=== PATIENT | male | born 1965 | race Caucasian/White ===

== ENCOUNTER 2021-06-12 05:23 | Emergency (ER) | payer OTHER, SELFPAY ==
--- NOTE | ~2021-06-12 | XR_ITS ---
XR abdomen/kub 1V DATE: 06/12/2021 06:31 INDICATION: Right flank pain TECHNIQUE: 2 AP views COMPARISON: 06/12/[address] abdomen pelvis FINDINGS: No obvious radiographic correlate for the 3 mm right ureterovesical junction calculus demon strated on the current CT abdomen pelvis examination. No evidence of bowel structures. The psoas shadows are intact. No visceromegaly is evident. IMPRESSION: Nonspecific abdomen Reviewed, dictated and finalized at [facility]. Reviewed, dictated and finalized at [facility]. NT EXPERIENCE CONSULTANT IMPRESSION: Nonspecific abdomen
--- NOTE | ~2021-06-12 | CT_ITS ---
EXAMINATION: CT abdomen pelvis wo con DATE: 06/12/2021 06:21 INDICATION: Right flank pain for 2 hours TECHNIQUE: Computed tomography (CT) of the abdomen and pelvis was performed without intravenous contr ast. Automated exposure control and iterative reconstruction technique were employed. Exam dose: 443 .20 mGy-cm total exam DLP. COMPARISON: 06/12/2021 KUB FINDINGS: There is primarily dependent right lower lobe infiltrate/atelectasis and suggestion of some posterior pleural thickening. The left lung base is clear. Normal heart size. No pericardial or pleu ral effusion. Normal heart size. Small sliding hiatal hernia. The liver, gallbladder, bile ducts, pancreas, pancreatic duct and spleen are unremarkable. Normal morphology of the adrenal glands. There is a 3 mm right ureterovesical junction calculus with associated mild right hydroureteronephros is. No definite radiographic correlate for the calculus. No other urinary tract calculus. No left hydroureteronephrosis. There is atherosclerotic calcification but normal caliber of the abdominal aorta. No intraperitoneal or retroperitoneal pelvic mass lesion or adenopathy or ascites. There is prostate enlargement and calcification. The urinary bladder appears unremarkable. No bowel obstruction or intraperitoneal free air. The right testicle is situated in the inguinal canal along with an approximately 12 mm rounded calcif ication; recommend clinical correlation for possible undescended testicle with associated risk for te sticular malignancy. Included skeletal structures are unremarkable. IMPRESSION: 3 mm right ureterovesical junction calculus with associated mild hydroureteronephrosis Right lower lobe primarily dependent infiltrate and/atelectasis and suggestion of posterior pleural t hickening Right testicle in inguinal calcification recommend clinical correlation for possible undescended test icle with associated risk for testicular malignancy Prostate enlargement and calcification Reviewed, dictated and finalized at [facility]. Reviewed, dictated and finalized at [facility]. ING OPERATOR IMPRESSION: 3 mm right ureterovesical junction calculus with associated mild h ydroureteronephrosis Right lower lobe primarily dependent infiltrate and/atelectasis and suggestion of posterior pleural thickening Right testicle in inguinal calcification recommend clinical correlation for pos sible undescended testicle with associated risk for testicular malignancy Prostate enlargement and calcification
[2021-06-12 05:20] VITALS: BP 147/78; PULSE 72; RESP 13; TEMP 36.4; O2SAT 100
--- NOTE | 2021-06-12 05:38 | ED.ABDPAIN ---
HPI - Abdominal Pain General Chief Complaint: Abdominal Pain Stated Complaint: rt flank pain Time Seen by Provider: 06/12/21 05:27 Source: patient Mode of arrival: EMS Limitations: no limitations History of Present Illness HPI narrative: This is a 55 year old male who presents for evaluation of right flank pain. He developed sudden onset pain to right lower back pain less than 1 hour ago. He reports braden is severe and it is moving to right lower abdomen. EMS gave patient IV morphine but he continues to have severe pain. He reports increased urinary urgency but denies nausea, vomiting, fever, hematuria. He denies history of kidney stones. His pain is now worsened or relieved by anything. Related Data Allergies Allergy/AdvReac Type Severity Reaction Status Date / Time No Known Allergies Allergy Verified 06/12/21 05:31 Review of Systems Review of Systems: All systems reviewed & are unremarkable except as noted in HPI and below PMFSH Past Medical History Medical History (Updated 06/12/21 @ 06:54 by Lynn Mullins MD) Patient denies medical problems Surgical History Surgical History (Updated 06/12/21 @ 05:41 by Lynn Mullins MD) No pertinent past surgical history Social History Social History (Updated 06/12/21 @ 05:41 by Lynn Mullins MD) Smoking status: Never smoker Exam Const: General: alert Orientation/consciousness: patient oriented x3 Other: moderate distress due to pain, shaking Eyes: EOM: EOMs intact bilaterally Resp: Effort & Inspection: normal respiratory effort and no retractions Auscultation: clear to auscultation bilaterally Cardio: Rate: regular rate Rhythm: regular rhythm Heart sounds: no murmurs GI: GI Palp: Yes Soft to palpation, No Tenderness to palpation present (GI) and No Guarding due to palpation present (GI) Auscultation: normal bowel sounds : General: Yes no CVA tenderness Skin: General skin exam: normal color Rashes: no rashes Neuro: General: patient oriented x3, moves all extremities and CN's II-XI intact bilaterally Psych: Mental Status: mental status grossly normal Affect: normal affect Course Reevaluation(s) Reevaluation #1: I discussed with patient CT findings as distal ureteral stone that is passing as cause of his pain. I also discussed CT suggesting possible undescended testicle and enlarged prostate Date: 06/12/21 Time: 06:52 Vital Signs Vital signs: Vital Signs Temperature 97.6 F 06/12/21 05:20 Pulse Rate 72 06/12/21 05:20 Respiratory Rate 13 06/12/21 05:20 Blood Pressure 147/78 H 06/12/21 05:20 Pulse Oximetry 100 06/12/21 05:20 Temperature 97.6 F 06/12/21 05:20 Pulse Rate 71 06/12/21 06:26 Respiratory Rate 20 06/12/21 06:26 Blood Pressure 146/83 H 06/12/21 06:26 Pulse Oximetry 100 06/12/21 06:26 MDM - Abdominal Pain Lab Data Attestation: I reviewed the patient's lab results. Result diagrams: 06/12/21 05:58 06/12/21 05:58 Labs: Lab Results 06/12/21 06/12/21 06/12/21 Range/Units 05:58 05:58 07:31 WBC 8.4 (4.5-10.0) K/mm3 RBC 4.62 (4.6-6.20) M/mm3 Hgb 13.7 L (14.0-18.0) g/dL Hct 40.2 L (42.0-52.0) % MCV 87.0 (80-100) fl MCH 29.7 (26-34) pg MCHC 34.1 (32-36) g/dl RDW 12.3 (11.5-14.5) % Plt Count 302 (150-375) k/mm3 MPV 10.4 (7.4-10.4) fl Immature Gran % (Auto) 0.8 H (0-0.5) % Neut % (Auto) 81.6 H (45.5-73.1) % Lymph % (Auto) 11.3 L (18.3-44.2) % Stevens % (Auto) 4.8 (2.6-8.5) % Eos % (Auto) 1.3 (0-4.4) % Baso % (Auto) 0.2 (0.2-1.2) % Lymph # (Auto) 0.95 (0.9-3.2) K/mm3 Stevens # (Auto) 0.4 (0.1-0.6) K/mm3 Eos # (Auto) 0.1 (0-0.3) K/mm3 Baso # (Auto) 0.0 (0.0-0.1) K/mm3 Abs Immat Gran (auto) 0.07 H (0.00-0.031) K/mm3 Absolute Neuts (auto) 6.9 H (1.3-6.7) K/mm3 Absolute Nucleated RBC 0.0 (0.0-0.012) K/mm3 Nucleated RBC % 0.0 (0.0-0.2) %
[2021-06-12] MEDS: HYDROmorphone HCL INJ (*CRX) 1 MG/ML SYR IV PUSH (05:45)
[2021-06-12] MEDS: ONDANSETRON INJ 4 MG/2 ML VIAL IV PUSH (05:46)
[2021-06-12] MEDS: SODIUM CHLORIDE 0.9% IV 1,000 ML 999 ML IV CONT (05:48)
[2021-06-12 06:14] LABS: Basophils Percent Auto 0.2 % (0.2-1.2); Eosinophils Absolute Auto 0.1 K/mm3 (0-0.3); Eosinophils Percent Auto 1.3 % (0-4.4); Hematocrit 40.2 % (42.0-52.0); Hemoglobin 13.7 g/dL (14.0-18.0); Immature Granulocyte Absolute 0.07 K/mm3 (0.00-0.031); Immature Granulocyte Percent A 0.8 % (0-0.5); Lymphocytes Absolute Auto 0.95 K/mm3 (0.9-3.2); Lymphocytes Percent Auto 11.3 % (18.3-44.2); Mean Corpuscular HGB Conc 34.1 g/dl (32-36); Mean Corpuscular Hemoglobin 29.7 pg (26-34); Mean Platelet Volume 10.4 fl (7.4-10.4); Monocytes Absolute Auto 0.4 K/mm3 (0.1-0.6); Monocytes Percent Auto 4.8 % (2.6-8.5); Neutrophils Absolute Auto 6.9 K/mm3 (1.3-6.7); Neutrophils Percent Auto 81.6 % (45.5-73.1); Platelet Count Result 302 k/mm3 (150-375); Red Blood Count 4.62 M/mm3 (4.6-6.20); Red Cell Distribution Width 12.3 % (11.5-14.5); White Blood Count 8.4 K/mm3 (4.5-10.0)
[2021-06-12 06:23] LABS: Alanine Aminotransferase 20 U/L (4-50); Albumin Level 4.6 g/dL (3.5-5.1); Alkaline Phosphatase 108 U/L (38-126); Anion Gap 15 mmol/L (8-16); Aspartate Amino Transferase 23 U/L (17-59); Bilirubin,Total 0.6 mg/dL (0.2-1.3); Blood Urea Nitrogen 12 mg/dL (9-20); Calcium 9.3 mg/dL (8.4-10.2); Carbon Dioxide 20 mmol/L (22-30); Chloride 107 mmol/L (98-107); Estimated CRCL calculation 82 ml/min; Estimated Glomerular Filt Rate > 60; Glucose 137 mg/dL (65-110); Potassium 3.3 mmol/L (3.4-5.0); Sodium 142 mmol/L (137-145)
[2021-06-12 06:26] VITALS: BP 146/83; PULSE 71; RESP 20; O2SAT 100
[2021-06-12] MEDS: KETOROLAC 30 MG/ML VIAL (*BKC) IV PUSH (07:12)
[2021-06-12] MEDS: TAMSULOSIN HCL 0.4 MG CAPSULE PO (07:30)
[2021-06-12 07:56] LABS: Add Urine Microscopic? YES; Appearance Urine Clear (Clear); Bilirubin Urine Negative (Negative); Blood Urine 2+ (Negative); Calcium Oxalate Crystals Urine Present /hpf; Color Urine Yellow (Yellow); Glucose Urine UA Negative (Negative); Ketones Urine Negative (Negative); Leukocyte Esterase Ur Negative LEU/UL (Negative); Mucus Urine Rare /lpf; Nitrate Urine Negative (Negative); Protein Urine Negative (Negative); Specific Grav Ur 1.017 (1.001-1.035); Squamous Epithelial Cell Urine Rare /hpf (Few); WBC Urine 0-3 /hpf
== END 2021-06-12 08:06 | disposition home or self-care (01) ==
PROVIDERS: Emergency Provider General Practice
DX: N13.2 Hydronephrosis with renal and ureteral calculous obstruction (principal); N40.0 Benign prostatic hyperplasia without lower urinary tract symptoms; R91.8 Other nonspecific abnormal finding of lung field; R93.89 Abnormal findings on diagnostic imaging of other specified body structures
CPT/HCPCS: 36415; 74018; 74176; 80053; 81001; 85025; 96361; 96374; 96375; 99284; A9270; J1170; J1885; J2405; J7030

== ENCOUNTER 2023-04-27 04:31 | Emergency (ER) | payer OTHER, SELFPAY ==
--- NOTE | ~2023-04-27 | CT_ITS ---
CT of the Abdomen and Pelvis: Indication: Abdominal pain Technique: 2.5 mm axial scans were obtained through the abdomen and pelvis following intravenous adm inistration of 100 cc of Omnipaque 350. Dose reduction technique was used on this scan by utilizing a utomated exposure control and iterative reconstruction technique. The dose-length product (DLP) was 4 66.88 mGy-cm. COMPARISON: 06/12/2021 Findings: Scans through the lung bases demonstrate a small, relatively hyperdense right pleural effu arash versus pleural thickening, stable from prior exam. There is associated right basilar atelectatic change. The liver, spleen, pancreas, gallbladder, adrenals and kidneys are within normal limits. There are at herosclerotic calcifications of the aorta. No lymphadenopathy. No bowel obstruction or bowel wall thickening. There is no evidence to suggest acute appendicitis. Th ere is minimal haziness in the central mesentery with shotty lymph nodes present. Images through the pelvis were performed. Urinary bladder unremarkable. No pelvic mass seen. No ascit es. Impression: Findings suggestive of mesenteric panniculitis. Stable small hyperdense right pleural effusion versus right posterior pleural thickening, with associ ated mild bibasilar atelectatic change. Reviewed, dictated and finalized at location . UCTION GEAR CUTTER Impression: Findings suggestive of mesenteric panniculitis. Stable small hyperdense right pleural effusion versus right posterior pleural t hickening, with associated mild bibasilar atelectatic change.
[2023-04-27 04:34] VITALS: BP 149/89; PULSE 91; RESP 20; TEMP 36.7; O2SAT 99
[2023-04-27] MEDS: SODIUM CHLORIDE 0.9% IV 1,000 ML 999 ML IV CONT (04:55)
[2023-04-27 04:59] LABS: Basophils Percent Auto 0.2 % (0.2-1.2); Eosinophils Absolute Auto 0.9 K/mm3 (0-0.3); Eosinophils Percent Auto 9.2 % (0-4.4); Hematocrit 52.3 % (42.0-52.0); Hemoglobin 17.2 g/dL (14.0-18.0); Immature Granulocyte Absolute 0.04 K/mm3 (0.00-0.031); Immature Granulocyte Percent A 0.4 % (0-0.5); Lymphocytes Absolute Auto 1.36 K/mm3 (0.9-3.2); Lymphocytes Percent Auto 13.8 % (18.3-44.2); Mean Corpuscular HGB Conc 32.9 g/dl (32-36); Mean Corpuscular Hemoglobin 29.2 pg (26-34); Mean Corpuscular Volume 88.6 fl (80-100); Mean Platelet Volume 10.1 fl (7.4-10.4); Monocytes Absolute Auto 0.6 K/mm3 (0.1-0.6); Neutrophils Absolute Auto 6.9 K/mm3 (1.3-6.7); Neutrophils Percent Auto 70.4 % (45.5-73.1); Platelet Count Result 304 k/mm3 (150-375); Red Cell Distribution Width 12.6 % (11.5-14.5); White Blood Count 9.9 K/mm3 (4.5-10.0)
--- NOTE | 2023-04-27 05:15 | ED.NAVMDI ---
HPI - Nausea/Vomiting/Diarrhea General Chief complaint: Nausea/Vomiting/Diarrhea Stated complaint: diarrhea Time Seen by Provider: 04/27/23 04:43 History of Present Illness HPI Narrative: patient is a 57-year-old male presenting with diarrhea. Patient states that he has had numerous episodes of watery diarrhea per day for the last several days. States that he has been having left-sided abdominal pain. No nausea or vomiting. States that he had a similar episode several weeks ago that self-resolved. He denies melena or hematochezia. No dysuria or hematuria. Denies recent antibiotic use. No further complaints. Related Data Allergies Allergy/AdvReac Type Severity Reaction Status Date / Time No Known Allergies Allergy Verified 06/12/21 05:31 Review of Systems Review of Systems: All systems reviewed & are unremarkable except as noted in HPI and below PMFSH Past Medical History Medical History Patient denies medical problems Surgical History Surgical History No pertinent past surgical history Social History Social History Smoking status: Never smoker Exam Narrative: GENERAL: Well-appearing and in no acute distress. HEAD: Normocephalic, atraumatic. EYES: PERRLA and EOMI. ENT: Mucous membranes moist. NECK: Supple. CHEST: No respiratory distress. HEART: Regular rate and rhythm ABDOMEN: Soft, +LLQ tenderness w/o guarding or rebound EXTREMITIES: Normal range of motion. SKIN: Warm, dry, no rash. NEURO: Alert and oriented x3. PSYCH: Normal mood and affect. Course Vital Signs Vital signs: Vital Signs Temperature 98.1 F 04/27/23 04:34 Pulse Rate 91 04/27/23 04:34 Respiratory Rate 20 04/27/23 04:34 Blood Pressure 149/89 H 04/27/23 04:34 Pulse Oximetry 99 04/27/23 04:34 Oxygen Delivery Room Air 04/27/23 04:34 Temperature 98.1 F 04/27/23 04:34 Pulse Rate 91 04/27/23 04:34 Respiratory Rate 20 04/27/23 04:34 Blood Pressure 149/89 H 04/27/23 04:34 Pulse Oximetry 99 04/27/23 04:34 Oxygen Delivery Room Air 04/27/23 04:34 MDM - Nausea/Vomiting/Diarrhea MDM Narrative Medical decision making narrative: Patient is a 57-year-old male presenting with several days of diarrhea and left-sided abdominal pain. Vitals are stable. Exam remarkable for the above. work is unremarkable. No leukocytosis. Normal electrolytes and renal function. UA is unremarkable. Negative for COVID, influenza. CT abdomen pelvis shows evidence of mesenteric panniculitis but there are no acute abnormalities. No evidence of diverticulitis or colitis. On re-evaluation, the patient is resting comfortably. He has not had any further episodes of diarrhea. Feel he is safe for outpatient management. Advised loperamide as needed for diarrhea. Recommended close PCP follow-up. Appropriate return precautions given. Patient voiced understanding and is agreeable with plan. Discharged in stable condition. Differential Diagnosis Differential diagnosis: Likely food poisoning, gastroenteritis, dehydration and other ( Diverticulitis, colitis, diarrheal illness) Medical Records Attestation: I reviewed the patient's medical records. Lab Data Attestation: I reviewed the patient's lab results. 04/27/23 04:54 04/27/23 05:30 Labs: Lab Results 04/27/23 04/27/23 04/27/23 Range/Units 04:54 05:30 06:26 WBC 9.9 (4.5-10.0) K/mm3 RBC 5.90 (4.6-6.20) M/mm3 Hgb 17.2 D (14.0-18.0) g/dL Hct 52.3 H (42.0-52.0) % MCV 88.6 (80-100) fl MCH 29.2 (26-34) pg MCHC 32.9 (32-36) g/dl RDW 12.6 (11.5-14.5) % Plt Count 304 (150-375) k/mm3 MPV 10.1 (7.4-10.4) fl Immature Gran % (Auto) 0.4 (0-0.5) % Neut % (Auto) 70.4 (45.5-73.1) % Lymph % (Auto) 13.8 L (
[2023-04-27 05:35] LABS: Influenza A QL RT-PCR Negative (Negative); Influenza B QL RT-PCR Negative (Negative); RSV RNA, RT-PCR Negative (Negative); SARS-CoV-2 RNA PCR Negative (Negative)
[2023-04-27 05:51] LABS: Alanine Aminotransferase 19 U/L (6-50); Albumin Level 4.7 g/dL (3.5-5.1); Alkaline Phosphatase 107 U/L (38-126); Anion Gap 10 mmol/L (8-16); Aspartate Amino Transferase 23 U/L (17-59); Bilirubin,Total 0.8 mg/dL (0.2-1.3); Blood Urea Nitrogen 16 mg/dL (9-20); Calcium 9.4 mg/dL (8.4-10.2); Carbon Dioxide 26 mmol/L (22-30); Chloride 105 mmol/L (98-107); Estimated CRCL calculation 90 ml/min; Estimated Glomerular Filt Rate > 60; Glucose 104 mg/dL (65-110); Lipase 157 U/L (23-300); Potassium 4.5 mmol/L (3.4-5.0); Sodium 141 mmol/L (137-145)
[2023-04-27 06:38] LABS: Appearance Urine Clear (Clear); Bacteria Urine None Seen /hpf; Bilirubin Urine Negative (Negative); Blood Urine Trace (Negative); Color Urine Yellow (Yellow); Glucose Urine UA Negative (Negative); Ketones Urine Negative (Negative); Leukocyte Esterase Ur Negative LEU/UL (Negative); Nitrate Urine Negative (Negative); Non Pathogenic Casts 0-2; Protein Urine Trace mg/dL (Negative); RBC Urine 0-2 /hpf (0-2); Squamous Epithelial Cell Urine None seen /hpf (Few); Urobilinogen Urine 0.2 mg/dL (<2.0); WBC Urine 0-5 /hpf; pH Urine 5.5 (5.0-9.0)
[2023-04-27 06:50] LABS: Add Urine Microscopic? YES; Specific Grav Ur 1.061 (1.001-1.035)
[2023-04-27] MEDS: LOPERAMIDE HCL 2 MG CAPSULE 4 MG PO (07:35)
== END 2023-04-27 07:40 | disposition home or self-care (01) ==
PROVIDERS: Emergency Provider Emergency Medicine
DX: R19.7 Diarrhea, unspecified (principal); Z20.822 Contact with and (suspected) exposure to COVID-19
CPT/HCPCS: 36415; 74177; 80053; 81001; 83690; 85025; 87637; 96360; 99284; A9270; J7030; Q9967

== ENCOUNTER 2023-12-24 13:44 | Emergency (ER) | payer OTHER, SELFPAY ==
--- NOTE | ~2023-12-24 | XR_ITS ---
XR chest 2V DATE: 12/24/2023 14:04 INDICATION: Cough, fever TECHNIQUE: PA and lateral views COMPARISON: None FINDINGS: Bilateral hyperinflation. There is right lower lobe discoid atelectasis and/or scarring. Clinical correlation is advised. Other pimentel no pulmonary infiltrate or consolidation, pleural effusion or pulmonary vascular congestion or p neumothorax. There is bilateral apical capping. Normal heart size. No hilar or mediastinal enlargement. IMPRESSION: Discoid atelectasis or scarring, right lower lobe; otherwise no active pulmonary disease Bilateral hyperinflation Reviewed, dictated and finalized at [facility]. IMPRESSION: Discoid atelectasis or scarring, right lower lobe; otherwise no act sury pulmonary disease Bilateral hyperinflation
[2023-12-24 13:45] VITALS: BP 146/85; PULSE 71; RESP 16; TEMP 36.7; O2SAT 99
[2023-12-24 14:33] LABS: Influenza A QL RT-PCR Negative (Negative); Influenza B QL RT-PCR Negative (Negative); RSV RNA, RT-PCR Negative (Negative); SARS-CoV-2 RNA PCR Positive (Negative)
--- NOTE | 2023-12-24 15:08 | ED.URI ---
HPI - URI/Sore Throat General Chief Complaint: Upper Respiratory Infection Stated Complaint: URI x 4 days Time Seen by Provider: 12/24/23 14:06 History of Present Illness HPI Narrative: Patient is a 58-year-old male presenting with URI symptoms. Patient states that for the last 4-5 days he has had intermittent sore throat, nasal congestion, cough. No chest pain or shortness of breath. States that he has been feeling generally weak with poor appetite but he has been drinking plenty of fluids. No fevers, abdominal pain, vomiting or diarrhea, leg swelling. Related Data Allergies Allergy/AdvReac Type Severity Reaction Status Date / Time morphine AdvReac Unknown Verified 12/24/23 14:08 Review of Systems Review of Systems: All systems reviewed & are unremarkable except as noted in HPI and below PMFSH Past Medical History Medical History Patient denies medical problems Surgical History Surgical History No pertinent past surgical history Social History Social History Smoking status: Never smoker Exam Narrative: GENERAL: Well-appearing, in no acute distress, pleasant cooperative HEAD: Normocephalic, atraumatic. EYES: PERRLA and EOMI. ENT: Mucous membranes moist. Posterior oropharynx without acute abnormalities NECK: Supple. CHEST: Clear to auscultation. No respiratory distress. HEART: Regular rate and rhythm EXTREMITIES: Normal range of motion. No edema. SKIN: Warm, dry, no rash. NEURO: No focal deficits. Alert and oriented x3. PSYCH: Normal mood and affect. Course Vital Signs Vital signs: Vital Signs Temperature 98.0 F 12/24/23 13:45 Pulse Rate 71 12/24/23 13:45 Respiratory Rate 16 12/24/23 13:45 Blood Pressure 146/85 H 12/24/23 13:45 Pulse Oximetry 99 12/24/23 13:45 Oxygen Delivery Room Air 12/24/23 13:45 Temperature 98.0 F 12/24/23 13:45 Pulse Rate 71 12/24/23 13:45 Respiratory Rate 16 12/24/23 13:45 Blood Pressure 146/85 H 12/24/23 13:45 Pulse Oximetry 99 12/24/23 13:45 Oxygen Delivery Room Air 12/24/23 13:55 MDM - URI/Sore Throat MDM Narrative Medical decision making narrative: 58-year-old male presenting with URI symptoms for the last 4-5 days. Vitals are within normal limits. Saturating well on room air. Exam is unremarkable. Patient is positive for COVID-19. Chest x-ray without acute abnormalities. Patient is safe for outpatient management. Discussed appropriate supportive care. Advised PCP follow-up. Discharged in stable condition. Differential Diagnosis Differential diagnosis: Likely upper respiratory infection, viral infection, influenza, pharyngitis and other (COVID) Medical Records Attestation: I reviewed the patient's medical records. Lab Data Attestation: I reviewed the patient's lab results. Labs: Lab Results 12/24/23 Range/Units 13:51 Influenza A (RT-PCR) Negative (Negative) Influenza B (RT-PCR) Negative (Negative) RSV (RT-PCR) Negative (Negative) SARS-CoV-2 RNA (RT-PCR) Positive A (Negative) Imaging Data Radiologist's impression: ITS Impressions Chest X-Ray 12/24/23 14:15 IMPRESSION: Discoid atelectasis or scarring, right lower lobe; otherwise no active pulmonary disease Bilateral hyperinflation Critical Care Time Critical Care Time Critical Care Time: No Discharge Plan Discharge Clinical Impression: COVID-19 Patient Disposition: Home, Self-Care Condition: Stable Instructions: Antibiotic Form, How to Recover from COVID-19 at Home (ED) Additional Instructions: You are positive for COVID-19. Please use Tylenol and ibuprofen for pain and fevers. If your symptoms worsen or other concerning symptoms arise, please return to the ER. Prescriptions: No Action loperamide 2 mg capsule
[2023-12-24 15:16] VITALS: BP 135/82; PULSE 70; RESP 20; TEMP 36.7; O2SAT 99
== END 2023-12-24 15:17 | disposition home or self-care (01) ==
PROVIDERS: Emergency Medicine; Emergency Provider Emergency Medicine; PCP Family Medicine
DX: U07.1 COVID-19 (principal)
CPT/HCPCS: 71046; 87637; 99283